=== PATIENT | male | born 1945 | race Caucasian/White ===

== ENCOUNTER 2017-01-18 21:10 | Emergency (ER) | payer MEDICARE ==
[~2017-01-18] VITALS: Ht 172.7 cm; Wt 63.5 kg
[2017-01-18] MEDS ORDERED: MEMA10TA PO (21:22)
[2017-01-18] MEDS ORDERED: DONE5TAB3 PO (21:22)
[2017-01-18] MEDS ORDERED: FERR-58 PO (21:22)
[2017-01-18 21:58] LABS: BASOPHILS % (AUTO) 0.3 % (0.0-2.0); DIFF TOTAL % 100 %; EOSINOPHILS % (AUTO) 0.5 % (0.0-6.0); HEMATOCRIT 22 % (39-51); HEMOGLOBIN 7.3 g/dL (13.5-17.5); LYMPHOCYTES # (AUTO) 4.3 /CMM (0.8-4.8); LYMPHOCYTES % (AUTO) 70.6 % (20.0-44.0); MEAN CORPUSCULAR HEMOGLOBIN 29 PG (26.0-33.0); MEAN CORPUSCULAR HGB CONC 33 g/dl (31.0-36.0); MEAN CORPUSCULAR VOLUME 88 fL (80-96); MONOCYTES # (AUTO) 0.3 /CMM (0.1-1.30); NEUTROPHILS # (AUTO) 1.4 /CMM (1.8-8.9); NEUTROPHILS % (AUTO) 23.6 % (43.0-81.0); RED BLOOD CELL COUNT(AUTO) 2.51 MIL/uL (4.5-6.0)
[2017-01-18 22:09] LABS: ANION GAP 10 (5-14); CALCIUM, SERUM 8.1 mg/dL (8.5-10.1); CARBON DIOXIDE 28 mmol/L (21-32); CHLORIDE 108 mmol/L (98-107); GLUCOSE 115 mg/dL (74-106); POTASSIUM 4.1 mmol/L (3.5-5.1); SODIUM SERUM 142 mmol/L (136-145); UREA NITROGEN, BLOOD 31 mg/dL (7-18)
[2017-01-18 22:13] LABS: ALANINE AMINOTRANSFERASE 27 U/L (12-78); ASPARTATE AMINOTRANSFERASE 23 U/L (15-37); BILIRUBIN,DIRECT 0.1 mg/dL (0.0-0.2); BILIRUBIN,TOTAL 0.3 mg/dL (0.2-1.0); INDIRECT BILIRUBIN 0.2 mg/dL (0.0-1.1); TOTAL PROTEIN, SERUM 6.3 g/dL (6.4-8.2); TROPONIN I < 0.017 ng/mL (0.00-0.056)
[2017-01-18 22:14] LABS: PLATELET COUNT (AUTO) 43 /CMM (150-450)
[2017-01-18 22:18] LABS: INR 1.01 (0.87-1.13); PROTHROMBIN TIME 10.9 SECS (9.5-12.7)
[2017-01-19] LABS: LYMPHOCYTES % (MANUAL) 71 % (16-48)
[2017-01-19 00:01] LABS: PLATELET ESTIMATE DECREASED
[2017-01-19 00:02] LABS: ANISOCYTOSIS 2+; HYPOCHROMASIA 2+
[2017-01-19 00:54] VITALS: BP 115/64
== END 2017-01-19 01:01 | disposition home or self-care (01) ==
LOC: ER 21:14
DX: D64.9 Anemia, unspecified (principal); D69.6 Thrombocytopenia, unspecified; F03.90 Unspecified dementia, unspecified severity, without behavioral disturbance, psychotic disturbance, mood disturbance, and anxiety
CPT/HCPCS: 36415; 71010; 80048; 80076; 84484; 85025; 85730; 86850; 93005; 99285; A4606; Z7610